=== PATIENT | male | born 1995 | race Two or more races ===

== ENCOUNTER 2020-12-19 13:29 | Emergency (ER) | payer SELFPAY ==
[~2020-12-19] VITALS: Ht 172.7 cm; Wt 90.0 kg
[2020-12-19 13:34] VITALS: BP 140/81
[2020-12-19] MEDS ORDERED: ONDANSETRON HCL 4 MG/2 ML VIAL IVP ONE (14:15)
[2020-12-19] MEDS ORDERED: SODIUM CHLORIDE 0.9% 1,000 ML IV ONE (14:15)
[2020-12-19] MEDS ORDERED: LORazepam 2 MG/ML VIAL IM ONE (14:15)
[2020-12-19] MEDS ORDERED: BUPRENORPHINE HCL/NALOXONE HCL 8-2 MG SUBLINGUAL TABLET SL ONE (15:00)
== END 2020-12-19 15:45 | disposition left against medical advice (07) ==
LOC: EMS 13:31
DX: F11.23 Opioid dependence with withdrawal (principal); F17.210 Nicotine dependence, cigarettes, uncomplicated; Z93.3 Colostomy status
CPT/HCPCS: 96372; 99283; J2060; J2405; J7030